=== PATIENT | female | born 1980 | race Two or more races ===

== ENCOUNTER 2016-04-30 08:58 | Outpatient (CLI) | payer MEDICAID ==
[2016-04-30 09:15] VITALS: BMI 37.1
--- NOTE | 2016-04-30 10:12 | US ---
BIOPHYSICAL PROFILE HISTORY: Maternal diabetes. The patient is expected to be at 37 weeks 2 days gestational age. COMPARISONS: 04/27/2016. FINDINGS: Ultrasonography demonstrates a single live intrauterine gestation in cephalic position. The biophysical profile is measured at 8/8. cardiac activity is observed with a heart rate of 147 bpm. A four-quadrant amniotic fluid index measures 7.9 cm. IMPRESSION: 1. A single live intrauterine gestation in cephalic position. 2. A biophysical profile with a score of 8/8. 3. A four-quadrant amniotic fluid index measuring 7.9 cm. The findings were called to the [facility] at 1008 hours.
== END 2016-04-30 10:15 | disposition home or self-care (01) ==
LOC: FBCOUT 08:58 → FBC 09:01 → FBCOUT 10:15
PROVIDERS: ATTEND Obstetrics & Gynecology
DX: O24.419 Gestational diabetes mellitus in pregnancy, unspecified control (principal); Z3A.37 37 weeks gestation of pregnancy

== ENCOUNTER 2016-05-01 16:06 | Outpatient (CLI) | payer MEDICAID ==
[2016-05-01 18:42] LABS: PH,URINE 6.5 (5.0-8.0); URINE BILIRUBIN NEGATIVE (NEGATIVE); URINE BLOOD NEGATIVE (NEGATIVE); URINE GLUCOSE (UA) NEGATIVE (NEGATIVE); URINE LEUKOCYTE ESTERASE NEGATIVE (NEGATIVE); URINE NITRITE NEGATIVE (NEGATIVE); URINE PROTEIN NEGATIVE (NEGATIVE); URINE UROBILINOGEN NORMAL (0-1 mg/dl)
[2016-05-01 18:47] LABS: URINE APPEARANCE CLEAR; URINE COLOR YELLOW
[2016-05-01 18:58] VITALS: BMI 36.3
--- NOTE | 2016-05-01 21:39 | PCMOBT ---
OB Triage - Subjective LUCY MARIE is a 36 year old G P at who presents to L & D triage after a non reactive NST from clinic today. Nayeli has been followed since first trimester with GDM, probable undiagnosed type 2 DM. She is currently taking 22 reg and 22 NPH insulin in the AM's and 24 reg/ 48 NPH insulin in the evenings. Despite this her blood sugars are still running high: fastings 93-110, and pprandials 140 to 225 recently. Her glucoses have never been adequately controlled during this whole , partly due to the pt's resistance to taking insulin, partly due to inadequate diet control/ lack of exercise. Pt has been followed in these last weeks with NST's and BPP's which have all been reassuring until the NST in the office this afternoon. This was not worrisome but did not meet criteria for reactivity. Pt went to get some food and walked about for 1 hour, then came to the [facility] for re-eval. Last [facility] visit was 04/02/16: US showed growth at 60%'ile. They recommended delivery by 39weeks. Review of Systems: Movement (active) - Physical Exam General: NAD Neurological: Alert, Oriented X4 Respiratory: Clear to Auscultation Cardiac: Regular Rate Abdomen: Soft, Non Tender, Gravid (EFW 7 lbs) Extremeties: No Deformities Contractions: Other (rare) - Pelvic Exam External Genitalia: Normal Appearance Vaginal Vault: Normal Cervix: Other (thick, closed, high, floppy, multiparous.) Uterus: Gravid - Heart Tones Baseline: 135 (Initial part of tracing hard to interpret because it was not possible to discern the baseline. There was no worrisome pattern. Baby was active. ) Variability: Moderate Accelerations: Present Decelerations: Non-Present - Assessment/ Plan 36 year old at 37w3d here for NST. NST was reactive. We also have a BPP of 88 from yesterday. I am most concerned about this pt's blood sugars which are still inadequately controlled. Glucose this evening after eating a salad is 70. Most recent Hgb A1c from 03/30/16 was 6.0% Options were discussed with pt. I am recommending an induction of labor this week. The pt agreed to come in on 05/05/16 for this. In the meantime she will be as careful as possible with her diet. She will keep her blood sugars as low as she can and will increase her insulin further if needed. She will return on 05/03/16 for NST, then a BPP on 05/04/16. Then admission for induction on 05/05/16. Risks/benefits reviewed. Return precautions given: including that she should return if she has decreased movement, if she has LOF, vaginal bleeding or contractions such that she thinks she's in labor.
== END 2016-05-01 18:30 | disposition home or self-care (01) ==
LOC: FBCOUT 16:06
PROVIDERS: ATTEND Obstetrics & Gynecology
DX: O76 Abnormality in fetal heart rate and rhythm complicating labor and delivery (principal); O24.414 Gestational diabetes mellitus in pregnancy, insulin controlled; O09.523 Supervision of elderly multigravida, third trimester; Z3A.37 37 weeks gestation of pregnancy

== ENCOUNTER 2016-05-03 15:45 | Outpatient (CLI) | payer MEDICAID ==
[2016-05-03 16:16] VITALS: BMI 35.9
== END 2016-05-03 16:40 | disposition home or self-care (01) ==
LOC: FBC 15:45 → FBCOUT 15:45
PROVIDERS: ATTEND Obstetrics & Gynecology
DX: O24.414 Gestational diabetes mellitus in pregnancy, insulin controlled (principal); Z3A.00 Weeks of gestation of pregnancy not specified

== ENCOUNTER 2016-05-05 15:07 | Inpatient (IN) | payer MEDICAID ==
[2016-05-05 15:48] LABS: URINE BILIRUBIN NEGATIVE (NEGATIVE); URINE BLOOD NEGATIVE (NEGATIVE); URINE GLUCOSE (UA) NEGATIVE (NEGATIVE); URINE LEUKOCYTE ESTERASE NEGATIVE (NEGATIVE); URINE NITRITE NEGATIVE (NEGATIVE); URINE PROTEIN NEGATIVE (NEGATIVE); URINE UROBILINOGEN NORMAL (0-1 mg/dl)
[2016-05-05 15:50] LABS: URINE APPEARANCE CLEAR; URINE COLOR YELLOW
[2016-05-05 15:59] VITALS: BMI 34.9
[2016-05-05] MEDS ORDERED: LACTATED RINGERS 1,000 ML ONE (17:02)
[2016-05-05] MEDS ORDERED: IV START KIT ONE (17:02)
[2016-05-05] MEDS ORDERED: OXYTOCIN IN LR 500 ML IV ONE (17:03)
[2016-05-05] MEDS ORDERED: LIDOCAINE Viscous 2% 15 ML UDCUP ONE (17:03)
[2016-05-05] MEDS ORDERED: LIDOCAINE 1% (PRES FREE) 30 ML VIAL ONE (17:03)
[2016-05-05] MEDS ORDERED: OXYTOCIN 10 UNITS/ML VIAL ONE (17:03)
[2016-05-05] MEDS ORDERED: MINERAL OIL 25 ML BOT ONE (17:03)
[2016-05-05] MEDS ORDERED: PUMP TUBING ONE (17:04)
[2016-05-05 17:23] LABS: HEMATOCRIT 38.7 % (37.0-47.0); HEMOGLOBIN 13.2 gm/l (12.0-16.0); MEAN CELL VOLUME 86.6 fl (81.0-99.0); MEAN CORPUSCULAR HEMOGLOBIN 29.5 pg (27.0-31.0); MEAN CORPUSCULAR HGB CONC 34.1 g/dl (33.0-37.0); RED CELL DISTRIBUTION WIDTH 14.1 % (11.5-14.5)
[2016-05-05 17:53] LABS: ALB/GLOB RATIO 1.1 (>1.0); CALCIUM 8.3 mg/dL (8.6-10.3)
[2016-05-05] MEDS: MISOPROSTOL 25 MCG TABLET VG SCH ×2 (19:06→23:09)
[2016-05-05] MEDS ORDERED: INSULIN NPH HUMAN RECOM (DOSE) 100 UNITS/1 ML SUB-Q ONE (20:33)
[2016-05-06] MEDS: MISOPROSTOL 25 MCG TABLET VG SCH ×4 (03:19→14:41)
--- NOTE | 2016-05-06 08:12 | PCMAN ---
OB Admission Note - History : 4 Term: 3 Livin Gestational Age (weeks): 38 Admit Cervical Dilation:: FT Admit Cervical Effacement (%):: 50 (thick, soft, floppy cervix.) Admit Station:: -3 Admit Presentaton:: cephalic Membrane Status: Intact Contractions: Yes Contraction Frequency:: IRREGULAR Heart Rate:: 135 (Sometimes hard to identify baseline; no worrisome pattern. ) Status:: good Summary of Course:: See dictated note. - Labs Blood Type: O (+) positive Hct/Hgb:: 12.6 Rubella Status: Immune GBS Status: Negative Abnormal Labs: None Other Labs:: Hgb A1c 7.9% at beginning of . Pt referred by Dr Abraham to us for management. Very difficult to get blood sugars controlled, partly because pt did not agree that she has type 2 DM, partly because of resistance to using insulin, partly from resistance to diet control. US showed growth at approx 60%'ile. Blood sugars still not adequate despite insulin x 4 doses per day. Last Hgb A1c 6.0%. - Physical Exam Psych/Mental Status: Mood/Affect Appropriate Neurological: Alert, Oriented x 4, Normal Speech Lungs: Clear to Auscultation Bilaterally Cardiovascular: Regular Rate and Rhythm Abdomen: Normal Bowel Sounds Genitourinary: Normal Female Genitalia Extremities: Full ROM Skin: Normal Color, Warm - Problems (1) Gestational diabetes mellitus (GDM) Qualifiers: Gestational diabetes mellitus control: insulin-controlled Status: Acute Code: O24.419 Assessment/Plan: Inadequate blood sugar control. GDM, at 38 weeks today. Plan is for cervical ripening and induction of labor. Pt had last baby 10 years ago and she was over 9 lbs, vaginally. EFW 7.5-8 lbs, but cervix not favorable.
--- NOTE | 2016-05-06 08:44 | PDOC36 ---
Provider Note Subject: Progress Note Note: S: Feeling crampy, contrx getting stronger and wrapping around to lower back. O: VS stable. FH category 1 most of the night. Baseline 130, no worrisome pattern. Contrx q3-4 mild to mod intensity FBS 106 Exam vertex is now at -3 and well applied to an anterior cervix. Cervix 70%, soft, 1cm, not stretchy Membranes intact Imp: Good response to misoprostol x 3 doses. Plan: Breakfast with reg insulin. Then start gentle pitocin
[2016-05-06] MEDS: [UNRECOGNIZED DRUG - OTHER] PO SCH (09:15)
[2016-05-06] MEDS: OXYTOCIN IN LR 500 ML IV PRN ×9 (09:52→17:57)
[2016-05-06] MEDS ORDERED: INSULIN REGULAR HUMAN (DOSE) 100 UNITS/1 ML SUB-Q SCH (11:00)
[2016-05-06] MEDS: LACTATED RINGERS 1,000 ML IV SCH ×2 (11:30→18:17)
--- NOTE | 2016-05-06 13:28 | HP ---
LUCY DAVIS [id number] DATE OF : 1980 DATE OF ADMISSION: 05/05/2016 HISTORY OF PRESENT ILLNESS: Lucy Ledezma is a 36-year-old 4, para 3 who was admitted on the afternoon of 05/05/2016 for induction of labor. Please see the patient's admission note in [facility] as well as her previous records for details. The patient is being admitted because of gestational diabetes requiring large amounts of insulin. Her blood sugars have never been well controlled during this . She is now at 38 weeks gestation, the plan is to start with cervical ripening, and induce this labor with careful monitoring. To review this patient's course. She has been followed in our practice since approximately 13- 1/2 weeks gestation. She first presented to Dr. Abraham with a hemoglobin A1c of 7.9%. She did not agree that she had type 2 diabetes. We managed this as if it were gestational diabetes, but from the start I expected the patient would need insulin. Lucy did not agree to insulin therapy but agreed to take oral hypoglycemics. She initially was on metformin 500 mg twice a day. We increased this eventually to 1000 mg during the day, but even with this her fasting blood sugars remained elevated. Later she was switched to glyburide once daily then twice daily. Her blood sugars remained high with fastings between 110 and 130. Eventually, I was able to convince the patient to try a long-acting insulin in the evenings. This was actually started at about 21 weeks gestation, and it did improve her blood sugars some. By January 30, her hemoglobin A1c was 5.8%; this was at 24-1/2 weeks gestation. The patient, however, continued to have high fasting blood sugars. Eventually despite high doses of evening NPH her blood sugars remained high. We tried doing a twice daily dose of NPH and then eventually moved a combination of regular and NPH insulin. This was only initiated after the patient did a visit with a maternal medicine specialist who also recommended it. Her hemoglobin A1c has been 6.0% towards the end of this . The patient sometimes seems very relaxed about her intake of carbohydrates. We have discussed the risks to the baby. It is interesting to note that this patient lost about 8 pounds in the first half of her , and then since about 20 weeks gestation, she has gradually gained back about 10 pounds. Her overall weight gain, however, is minimal during this . She has had normal blood pressures throughout the . No significant proteinuria, and just mild fluid retention. She has never shown any glucosuria nor proteinuria on her testing. The patient did have an ultrasound on 04/02/2016 with the maternal medicine specialist. At that time, growth was at the 60th percentile and the estimated weight was just under 5 pounds. Now at term it is hard to estimate the size clinically, but I do not think that this baby is as large as her last child. The patient had a daughter 10 years ago who weighed a little over 9 pounds. This baby is probably 7-1/2 to 8 pounds. The patient's other 2 babies were 8-1/2 and 7-1/2 pounds. The patient's exam at the time of admission is not very favorable. I have discussed risks of an induction of labor as well as the benefits. I am concerned about the possibility of intrauterine (IUFD) in this patient. I am also concerned about macrosomia, and compromise during labor. I think the benefit of waiting for spontaneous labor at this point is minimal and possibly dangerous. The patient is having virtually no contractions on her own. We talked about the possibility that induction may require several days. We have also talked about the possibility that a section may eventually need to be done. Patient understands and agrees with our plan. Past medical history is also significant for hypothyroidism. This patient is on [place] thyroid replacement. Her most recent thyroid test was on 03/30/2016 and came back at 0.41 which is low normal. See the computer generated admission note for the rest of the details of this admission. IMPRESSION: Nayeli is a 36-year-old having her fourth child. She is at 38 weeks gestation. She has a poor Real's score, but is at high risk for concerns because of her poorly controlled gestational diabetes. She is being admitted for induction of labor and delivery. PABLO/marlene
--- NOTE | 2016-05-06 16:56 | PDOC36 ---
Provider Note Subject: Progress note Note: Pt has been on pitocin since 10 am. Now on 13mu/mn. Contrx getting a bit stronger, but still a bit irregular. She feels them mostly low in front, some wrapping around to back. Exam: VSstable, FH 130's, mostly category 1 Blood sugars all under 120. Pt mostly resting in bed, appears comfortable. VE: vtx still -3, cvx soft, floppy, thick, 2cm, vertex firmly applied to int os. Imp: pt on pitocin x 4.5 hours with some cervical change. I don't think I could get a cook balloon in as yet. Still in early labor, but some small response to cervical ripening: vertex is applied and cervix a bit more open. Plan: Continue pitocin for now. Pt to get up walking. Re-eval in 3-4 hours.
[2016-05-06] MEDS ORDERED: BUTORPHANOL TARTRATE 1 MG/ML VIAL IV ONE (22:05)
--- NOTE | 2016-05-06 23:32 | PDOC36 ---
Provider Note Subject: [place] balloon catheter placed at 10:30 PM Note: After approx 10 hours of pitocin there was no evidence of active labor. Exam showed cervix to be 2cm. Pt ate some supper. She then took a shower. She is still a bit crampy but no real change. Options discussed with pt and her . It was recommended that we try to place the balloon catheter through the cervix. Pt agreed. Exam: VS stable Fh 130 with accels; now decreased variability after 2mg stadol. Mild irregular contractions. cervix 2cm, 50% but floppy, softer stretchier cervix, midplane vertex loosely applied at -3 station. Balloon cath placed with stylet without difficulty. 80cc inuterine balloon, 60cc in vaginal. blood sugar 123 Imp: Cervical ripening with balloon Plan: Continuous monitoring VS and glucose [id number] Sleep; pain meds as needed.
[2016-05-07] MEDS ORDERED: OXYTOCIN IN LR 500 ML IV PRN (07:21)
[2016-05-07] MEDS ORDERED: DOCUSATE SODIUM 100 MG CAPSULE PO PRN (07:31)
--- NOTE | 2016-05-07 07:34 | PDOC36 ---
Provider Note Subject: intrapartum note Note: Cook balloon placed in last night. FSBS this AM = 106 FHT: 130's, reactive, mod mir, cat I [place]: no ctx may have meal, then restart pitocin with balloon in
[2016-05-07] MEDS ORDERED: PUMP TUBING ONE (08:04)
[2016-05-07] MEDS: [UNRECOGNIZED DRUG - OTHER] PO SCH (08:24)
[2016-05-07] MEDS: INSULIN REGULAR HUMAN (DOSE) 100 UNITS/1 ML SUB-Q SCH ×3 (09:41→20:37)
[2016-05-07] MEDS: LACTATED RINGERS 1,000 ML IV SCH ×3 (09:45→20:18)
--- NOTE | 2016-05-07 19:28 | PDOC36 ---
Provider Note Subject: Intrapartum note Note: Pt was given 12u novolin this AM with response in FSBS. Pitocin was started this AM. Pt cont to be induced with pitocin and cook balloon. Balloon out at 1800 and cx=4/70/-3, vtx, membranes intact. FHT: 135, mod mir, no decels, reactive Capac: q2-3 min cont pitocin. FSBS reviewed; chk q2h
[2016-05-07] MEDS ORDERED: DIPHENHYDRAMINE HCL 25 MG CAPSULE PO PRN (23:16)
[2016-05-08] MEDS: OXYTOCIN IN LR 500 ML IV PRN (03:56)
[2016-05-08] MEDS: [UNRECOGNIZED DRUG - OTHER] PO SCH ×2 (07:34→10:13)
[2016-05-08] MEDS: LACTATED RINGERS 1,000 ML IV SCH ×3 (08:49→14:17)
[2016-05-08] MEDS: INSULIN REGULAR HUMAN (DOSE) 100 UNITS/1 ML SUB-Q SCH ×2 (10:14→12:55)
[2016-05-08] MEDS ORDERED: EPIDURAL PUMP SET ONE (12:56)
[2016-05-08] MEDS ORDERED: FENTANYL/ROPIVACAINE EPIDURAL 250 ML EP ONE (12:57)
[2016-05-08] MEDS ORDERED: EPHEDRINE SULFATE 50 MG/ML 1ML VIAL IV PRN (13:50)
[2016-05-08] MEDS ORDERED: NALOXONE HCL 0.4 MG/ML VIAL IV PRN (13:50)
[2016-05-08] MEDS ORDERED: DIPHENHYDRAMINE HCL 50 MG/1 ML VIAL IV PRN (13:50)
[2016-05-08] MEDS ORDERED: NALBUPHINE HCL 20 MG/ML AMP IV PRN (13:50)
[2016-05-08] MEDS ORDERED: SODIUM CHLORIDE 0.9% 500 ML IV PRN (13:50)
[2016-05-08] MEDS ORDERED: ONDANSETRON 4 MG/2ML 2 ML VIAL IV PRN (13:50)
[2016-05-08] MEDS ORDERED: METOCLOPRAMIDE HCL 5 MG/ML 2ML VIAL IV PRN (13:50)
[2016-05-08] MEDS ORDERED: LACTATED RINGERS 500 ML IV PRN (13:50)
[2016-05-08] MEDS ORDERED: EPIDURAL PROCEDURE TRAY ONE (14:02)
[2016-05-08] MEDS ORDERED: ROPIVACAINE 0.5% 30 ML VIAL ONE (14:02)
[2016-05-08] MEDS ORDERED: MISOPROSTOL 200 MCG TABLET ONE (18:12)
[2016-05-08] MEDS ORDERED: MISOPROSTOL 200 MCG TABLET PO ONE (18:17)
[2016-05-08] MEDS ORDERED: OXYCODONE/ACETAMINOPHEN 5/325 MG TABLET PO PRN (18:38)
[2016-05-08] MEDS ORDERED: LACTATED RINGERS 1,000 ML IV PRN (18:38)
[2016-05-08] MEDS ORDERED: LANOLIN 50 APPLIC/7G TUBE TP PRN (18:38)
[2016-05-08] MEDS ORDERED: DIPHTH,PERTUSS(ACELL),TET VAC 0.5 ML VIAL IM V ONE (18:38)
[2016-05-08] MEDS ORDERED: SENNOSIDES 8.6 MG TABLET PO PRN (18:38)
[2016-05-08] MEDS ORDERED: OXYCODONE HCL 5 MG TABLET PO PRN (18:38)
[2016-05-08] MEDS ORDERED: ACETAMINOPHEN 325 MG TABLET PO PRN (18:38)
[2016-05-08] MEDS ORDERED: DOCUSATE SODIUM 100 MG CAPSULE PO PRN (18:38)
[2016-05-08] MEDS ORDERED: MEASLES,MUMPS&RUBELLA VACCINE 0.5 ML VIAL SUB-Q V ONE (18:38)
[2016-05-08] MEDS ORDERED: CALCIUM CARBONATE 500 MG TAB.CHEW PO PRN (18:38)
[2016-05-08] MEDS ORDERED: BENZOCAINE/MENTHOL 60 APPLIC/BOT TP PRN (18:38)
[2016-05-08] MEDS ORDERED: OXYTOCIN IN LR 500 ML IV ONE (18:38)
[2016-05-08] MEDS: FENTANYL/ROPIVACAINE EPIDURAL 250 ML EP SCH (20:16)
--- NOTE | 2016-05-09 00:33 | PDOC36 ---
Provider Note Subject: Progress note Note: Pt had an episode of nausea and emesis, then given Zofran. Pt feels comfortable, no pain or pressure. Exam: Vertex 0 station, cervix just rim on pt's right side, position BREANN? Imp: Excellent progress in active labor. Plan: passive descent for 30-60min then start pushing.
--- NOTE | 2016-05-09 00:33 | PDOC36 ---
Provider Note Subject: AROM Note: Pt has been up walking most of the morning. She is feeling more pressure; a little bloody show. Exam: Baby is a bit lower. FH category 1, no worrisome pattern. VS stable, blood sugars have been good or low. No insulin needed. Vag exam 4cm stretchy to 5cm, vertex applied -3 station. With pt's permission, AROM performed, clear fluid. Imp: GDM finally entering active labor. Plan: Pt will decide if she wishes epidural.
--- NOTE | 2016-05-09 00:52 | PCMDEL ---
Delivery Note - Labor 1st stage (hr/min):: 6h 3min 2nd stage (hr/min):: 19min 3rd stage (hr/min):: 5min Total (hr/min):: 3 day induction - 6h 27min active Pushed (hr/min):: 19min - Delivery Delivery (Date): 05/08/16 Delivery (Time): 17:58 Gender: Male Weight: 7 lb 4 oz Length: 1 ft 8 in Presentation: Cephalic Position: OA Umbilical Cord: 3 Vessel Delayed Cord Clamping:: > 3 min 1 Minute Total: 9 5 Minute Total: 9 Placenta:: complete EBL:: 400cc Perineum:: intact Anesthesia/Meds:: epidural narcotics Length ROM:: 6h 22min Comments:: Pt had no real urge to push, but was aware of her contractions. She was coached in pushing in a reclining position. There was progressive descent and of the vertex, JUSTINA. Gentle delivery of head, with tight shoulders and torso, but no dystocia. Baby boy was placed on maternal abd, dried and evaluated. After about 4 min, cord quit pulsating. It was cut by FOB, Chin , after I clamped it. Pt had a little more bleeding than normal. Nayeli was given pitocin, then misoprostol 400mcg. Bleeding was much less there after.
[2016-05-09] MEDS: IBUPROFEN 800 MG TABLET PO PRN ×2 (01:48→14:13)
[2016-05-09 07:00] LABS: HEMATOCRIT 36.1 % (37.0-47.0); HEMOGLOBIN 11.8 gm/l (12.0-16.0)
[2016-05-09] MEDS: [UNRECOGNIZED DRUG - OTHER] PO SCH (07:33)
--- NOTE | 2016-05-09 08:39 | PDOC44 ---
- Subjective Day: 1 (Finally a normal vag last evening at 6pm!!) Pt is up walking, feeling much better. She is pleased with management of the . Bonding well with her handsome son. "Jasen." We discussed GDM vs type 2 DM. Pt will make sure that she comes in in July to get tested for type 2 DM. Reports Pain Tolerable, Reports , Reports Lochia Light - Objective Temp Pulse Resp BP Pulse Ox 98.3 F 70 16 107/59 05/09/16 07:29 05/09/16 07:29 05/09/16 07:29 05/09/16 07:29 Lab Results 05/09/16 06:15 Hgb 11.8 L Hct 36.1 L 05/08/16 18:21 POC Capillary Glucose 116 H Current Medications Generic Name Dose Route Start Last Admin Trade Name Freq PRN Reason Stop Dose Admin Acetaminophen 325 - 650 mg 05/08/16 18:38 Tylenol PO Q4H PRN Pain (Mild) Benzocaine/Menthol 1 applic 05/08/16 18:38 Dermoplast TP PRN PRN Patient Comfort Calcium Carbonate/Glycine 500 - 1,000 mg 05/08/16 18:38 Tums PO BID PRN Indigestion Docusate Sodium 100 mg 05/08/16 18:38 Colace PO DAILY PRN Comfort Emollient Ointment 1 applic 05/08/16 18:38 [id number]-[id number] TP PRN PRN sore nipples Ropivacaine/Fentanyl/NS 250 mls @ 0 mls/hr 05/08/16 14:55 05/08/16 20:16 Fentanyl 2 Mcg/Ml + Ropivacaine 0.125% Ep Bag EP Not Given EPI JAIRO Protocol Per Protocol Lactated Ringer's 1,000 mls @ 100 mls/hr 05/08/16 18:38 Lactated Ringers IV .Q10H PRN Titrate per clinical situation Ibuprofen 800 mg 05/08/16 18:38 05/09/16 01:48 Motrin PO 800 mg Q6H PRN Administration Pain (Mild) Oxycodone HCl 5 - 10 mg 05/08/16 18:38 Roxicodone PO Q3H PRN Pain (Severe) Oxycodone/Acetaminophen 1 - 2 tab 05/08/16 18:38 Percocet 5/325 PO Q4H PRN Pain (Moderate) Senna 17.2 mg 05/08/16 18:38 Senokot PO BEDTIME PRN Comfort/CONSTIPATION Sodium Chloride 10 ml 05/08/16 18:38 Normal Saline 10ml Flush IV PRN PRN IV Flush Sodium Chloride 10 ml 05/09/16 01:00 05/09/16 05:02 Normal Saline 10ml Flush IV 10 ml Q8HR JAIRO Administration Thyroid 120 mg 05/09/16 07:30 05/09/16 07:33 [place] Thyroid PO 120 mg QAMAC JAIRO Administration - Physical Exam General: Afebrile Psych/Mental Status: Mood/Affect Appropriate, Bonding Well Neurological: Oriented x 4, Normal Gait, Normal Speech Lungs: Clear to Auscultation Bilaterally Cardiovascular: Regular Rate and Rhythm Fundus: Firm, Below Umbilicus Abdomen: Normal Bowel Sounds Lochia: Light Skin: Normal Color - Problems:Assessment/Plan (1) Gestational diabetes mellitus (GDM) Qualifiers: Gestational diabetes mellitus control: insulin-controlled Status: Acute Assessment/Plan: Inadequate blood sugar control. GDM, at 38 weeks today. Plan is for cervical ripening and induction of labor. Pt had last baby 10 years ago and she was over 9 lbs, vaginally. EFW 7.5-8 lbs, but cervix not favorable. Prolonged 3 day induction, but finally with no complication. Pt knows to return in July for a 75gm 2H GTT. Pt wants a BTL, but federal consent was not signed till mid Mar. We will have her return for a 6wk ppLTS. Disposition: Anticipate DC Home Tomorrow
[2016-05-09] MEDS: FENTANYL/ROPIVACAINE EPIDURAL 250 ML EP SCH (10:09)
[2016-05-09] MEDS: LACTATED RINGERS 1,000 ML IV SCH (10:10)
[2016-05-09] MEDS: INSULIN REGULAR HUMAN (DOSE) 100 UNITS/1 ML SUB-Q SCH (10:11)
--- NOTE | 2016-05-10 07:22 | PDOC39B ---
Hospital Course: ADMIT DATE: 05/05/16 DISCHARGE DATE: 05/10/16 ADMISSION DIAGNOSES: intrauterine at 38.3 weeks, gestational diabetes PROCEDURES: induction of labor, spontaneous vaginal delivery HISTORY OF PRESENT ILLNESS: 36 year old G4 T3 P A L3 at 38 weeks 3 days presenting for induction of labor with history of gestational diabetes HOSPITAL COURSE: The patient had an routine post course. By day of discharge the patient is ambulating, eating, voiding, and passing flatus without difficulty. Pain is controlled and lochia is appropriate. She is [] - Physical Exam Vital Signs: Temp Pulse Resp BP Pulse Ox 98.9 F 67 17 119/72 05/10/16 01:51 05/10/16 01:51 05/10/16 01:51 05/10/16 01:51 General: Afebrile, No Acute Distress Psych/Mental Status: Mood/Affect Appropriate, Judgment/Insight Intact, Bonding Well Breast: Soft, Skin intact, Nipples Intact, No Tenderness, No Erythema, No Engorged Fundus: Firm, Midline, At Umbilicus, Other (nontender) Genitourinary: Other (voiding without difficulty) Lochia: Light Extremities: No Tenderness - Discharge Diagnosis (1) Term delivered Status: Acute - Discharge Plan Condition: Stable Disposition: Home Additional Instructions: office visit [address] levin, 2hr gtt per dr levin in july. nothing in vagina x 6 weeks, ibuprofen for pain Prescriptions: Ibuprofen [Motrin] 800 mg PO Q8H PRN #30 tablet PRN Reason: Pain
[2016-05-10] MEDS: FENTANYL/ROPIVACAINE EPIDURAL 250 ML EP SCH (08:28)
[2016-05-10 08:52] VITALS: BP 128/72
[2016-05-10] MEDS: [UNRECOGNIZED DRUG - OTHER] PO SCH (08:52)
== END 2016-05-10 11:13 | disposition home or self-care (01) | DRG 775 ==
LOC: FBCOUT 15:07 → FBC 15:07 → FBCOUT 16:24
PROVIDERS: ADMIT Obstetrics & Gynecology; ATTEND Obstetrics & Gynecology
PROC: 3E0P7GC Introduction of Other Therapeutic Substance into Female Reproductive, Via Natural or Artificial Opening (ICD-10-PCS; 2016-05-05)
PROC: 10E0XZZ Delivery of Products of Conception, External Approach (ICD-10-PCS; principal; 2016-05-08)
DX: O24.424 Gestational diabetes mellitus in childbirth, insulin controlled (principal); O99.284 Endocrine, nutritional and metabolic diseases complicating childbirth; E03.9 Hypothyroidism, unspecified; O09.523 Supervision of elderly multigravida, third trimester; Z3A.38 38 weeks gestation of pregnancy; Z37.0 Single live birth